=== PATIENT | female | born 1940 | race Caucasian/White ===

== ENCOUNTER 2018-09-15 23:44 | Inpatient (IN) ==
[2018-09-16] MEDS ORDERED: SODIUM CHLORIDE 0.9% 1,000 ML IV STA (00:46)
[2018-09-16 01:50] LABS: Basophils % 0.1 % (0.0-0.8); Eosinophils # 0.1 10*3/uL (0.0-0.87); Eosinophils % 1.1 % (0.00-10.9); Hemoglobin 11.4 GM/DL (12.0-16.0); Immature Granulocytes % 0.4 %; Immature Granulocytes Absolute 0.04 #; Lymphocytes # 1.9 10*3/uL (1.4-4.0); Lymphocytes % 20.5 % (21.3-54.2); Mean Corpuscular Volume 83.9 FL (87-102); Mean Platelet Volume 11.1 FL (9.6-12.0); Monocytes % 10.4 % (1.7-12.7); Neutrophils % 67.5 % (38.7-73.9); Platelet Count 173 T/CUMM (130-400); Red Blood Count 4.53 MC/CUMM (3.8-5.5); Red Cell Distribution Width 14.1 % (9.3-17.3); White Blood Count 9.4 T/CUMM (4-12)
[2018-09-16] MEDS ORDERED: AZITHROMYCIN INJ 500 MG in SODIUM CHLORIDE 0.9% 250 ML IV STA (01:50)
[2018-09-16] MEDS ORDERED: cefTRIAXone 1,000 MG in SODIUM CHLORIDE 0.9% 100 ML IV STA (01:50)
[2018-09-16 02:02] LABS: Apearance,Urine CLEAR (Clear); Bacteria,Urine Occasional /HPF (Few); Bilirubin,Urine Negative (Negative); Blood, Urine Negative (Negative); Glucose,Urine (UA) Negative (Negative); Ketones,Urine Negative (Negative); Nitrite,Urine Negative (Negative); Protein,Urine Negative; RBC,Urine 1 /HPF (0-4); Squamous Epithelial Cell,Urine Occasional /HPF (0-10); Urine Color Yellow (Yellow); Urine Specific Gravity 1.006 (1.001-1.035); Urine Urobilinogen < 2.0 EU/DL (0.2-1.0); WBC,Urine 6 /HPF (0-6)
[2018-09-16 02:08] LABS: Bilirubin,Total 0.7 MG/DL (0.2-1.0); Calcium 8.9 MG/DL (8.5-10.1); Osmolality,Calculated 285.1 MOS/KG (273-304); Total Protein 6.7 G/DL (6.4-8.3)
[2018-09-16] MEDS ORDERED: ALBUTEROL/IPRATROPIUM 3 ML NEB RESP TX PRN (03:10)
[2018-09-16] MEDS ORDERED: ONDANSETRON 4 MG/2 ML VIAL IV PRN (05:44)
[2018-09-16] MEDS ORDERED: ACETAMINOPHEN 325 MG TABLET PO PRN (05:44)
[2018-09-16] MEDS: SODIUM CHLORIDE 0.9% 1,000 ML IV SCH ×2 (06:27→21:01)
[2018-09-16] MEDS: ENOXAPARIN 40 MG/0.4 ML SYRINGE SUBCUT SCH (06:28)
[2018-09-16] MEDS: LEVOFLOXACIN INJ 750 MG in PREMIX 1 EACH IV SCH (06:28)
[2018-09-16] MEDS: amLODIPine 5 MG TABLET PO SCH (09:30)
[2018-09-16] MEDS: ZIPRASIDONE 20 MG/1 ML VIAL IM PRN (22:34)
[2018-09-17 05:15] LABS: Basophils % 0.3 % (0.0-0.8); Eosinophils # 0.1 10*3/uL (0.0-0.87); Eosinophils % 0.8 % (0.00-10.9); Hematocrit 37.4 VOL% (35.7-47.0); Hemoglobin 11.6 GM/DL (12.0-16.0); Immature Granulocytes % 0.3 %; Immature Granulocytes Absolute 0.02 #; Lymphocytes # 2.5 10*3/uL (1.4-4.0); Mean Corpuscular Volume 82.7 FL (87-102); Mean Platelet Volume 10.7 FL (9.6-12.0); Monocytes % 10.9 % (1.7-12.7); Neutrophils % 56.7 % (38.7-73.9); Platelet Count 197 T/CUMM (130-400); Red Blood Count 4.52 MC/CUMM (3.8-5.5); Red Cell Distribution Width 13.8 % (9.3-17.3)
[2018-09-17 05:33] LABS: Calcium 8.9 MG/DL (8.5-10.1); Osmolality,Calculated 280.1 MOS/KG (273-304)
[2018-09-17] MEDS: LEVOFLOXACIN INJ 750 MG in PREMIX 1 EACH IV SCH (06:45)
[2018-09-17] MEDS: ENOXAPARIN 40 MG/0.4 ML SYRINGE SUBCUT SCH (06:49)
[2018-09-17] MEDS: amLODIPine 5 MG TABLET PO SCH (08:16)
[2018-09-17] MEDS: SODIUM CHLORIDE 0.9% 1,000 ML IV SCH ×2 (08:18→21:00)
[2018-09-17] MEDS: POTASSIUM CHLORIDE 20 MEQ TABLET PO PRN ×2 (12:22→15:39)
[2018-09-17] MEDS: ZIPRASIDONE 20 MG/1 ML VIAL IM PRN ×2 (12:23→23:33)
[2018-09-17 16:30] LABS: Calcium 8.7 MG/DL (8.5-10.1)
[2018-09-17] MEDS: POTASSIUM CHLORIDE 20 MEQ TABLET PO SCH ×2 (17:01→23:33)
[2018-09-17] MEDS: MEMANTINE 10 MG TABLET PO SCH (20:58)
[2018-09-17] MEDS: clonazePAM 0.5 MG TABLET PO SCH (20:58)
[2018-09-17] MEDS: GABAPENTIN 100 MG CAPSULE PO SCH (20:58)
[2018-09-17] MEDS ORDERED: ATORVASTATIN 40 MG TABLET PO SCH (21:00)
[2018-09-17] MEDS ORDERED: MIRTAZAPINE 30 MG TABLET PO SCH (21:00)
[2018-09-18 05:16] LABS: Calcium 8.6 MG/DL (8.5-10.1); Osmolality,Calculated 288.4 MOS/KG (273-304)
[2018-09-18] MEDS: LEVOFLOXACIN INJ 750 MG in PREMIX 1 EACH IV SCH (05:31)
[2018-09-18] MEDS: ENOXAPARIN 40 MG/0.4 ML SYRINGE SUBCUT SCH (05:31)
[2018-09-18 07:43] VITALS: BP 140/66
[2018-09-18] MEDS: GABAPENTIN 100 MG CAPSULE PO SCH (08:00)
[2018-09-18] MEDS: amLODIPine 5 MG TABLET PO SCH (08:00)
[2018-09-18] MEDS: MEMANTINE 10 MG TABLET PO SCH (08:00)
[2018-09-18] MEDS: clonazePAM 0.5 MG TABLET PO SCH (08:00)
[2018-09-18] MEDS: ZIPRASIDONE 20 MG/1 ML VIAL IM PRN (08:02)
[2018-09-18] MEDS ORDERED: QUEtiapine 25 MG TABLET PO SCH (09:00)
== END 2018-09-18 12:51 | DRG 194 ==
LOC: EDUNIT# → EDBD → N.EDINP 23:44 → N.ED 23:44 → SUATTDRO 09-16 02:58 → N.5E 09-16 03:34
PROVIDERS: ADMIT Internal Medicine; ATTEND Internal Medicine